=== PATIENT | male | born 1945 | race Caucasian/White ===

== ENCOUNTER 2017-12-31 11:38 | Day surgery (SDC) | payer OTHER ==
[2017-12-31] MEDS ORDERED: diphenhydrAMINE 25 MG CAP PO ONE (11:43)
[2017-12-31] MEDS ORDERED: DIAZEPAM 5 MG TAB PO ONE (11:43)
[2017-12-31] MEDS ORDERED: FAMOTIDINE 20 MG TAB PO ONE (11:43)
[2017-12-31] MEDS ORDERED: ASPIRIN EC 325 MG TAB PO ONE (11:43)
[2017-12-31] MEDS ORDERED: NS 1,000 ML IV ONE (11:43)
--- NOTE | 2017-12-31 12:07 | CPEKG ---
Heart Rate: 61 RR Interval: 984 P-R Interval: 260 QRSD Interval: 80 QT Interval: 424 QTC Interval: 427 P Garland: -27 QRS Garland: -1 T Wave Garland: 36 EKG Severity - ABNORMAL ECG - EKG Impression: SINUS RHYTHM EKG Impression: FIRST DEGREE AV BLOCK EKG Impression: PROBABLE INFERIOR INFARCT, AGE INDETERMINATE Electronically Signed By: Crow Sharma 31-Dec-2017 14:32:53
[2017-12-31 12:20] LABS: PLATELET COUNT 178 10^3/uL (150-400)
[2017-12-31 12:27] LABS: INR 0.99 (0.83-1.16); PROTIME(PATIENT) 13.3 SEC (12.0-15.0)
[2017-12-31] MEDS ORDERED: LIDOCAINE 1% 300 MG/30 ML SDV ONE (13:24)
[2017-12-31] MEDS ORDERED: IOPAMIDOL (ISOVUE-370) 150 ML BTL IV ONE (13:24)
--- NOTE | 2017-12-31 14:16 | PDPROPOC ---
Sedation Plan of Care Sedation Plan of Care: vital signs stable, mental status noted, patient educated of risks, benefits, alternatives, patient can tolerate sedation ASA Classification: ASA 2 Planned drugs: fentanyl, midazolam Mallampati Score: Class 2 Mallampati Reference Image: Patient passed 3-3-2 rule?: Yes
--- NOTE | 2017-12-31 14:16 | PDHPUP ---
History & Physical Update H&P update statement: This history and physical update is based on an assessment of the patient which was completed after admission or registration (within 24 hours), but prior to the surgery/procedure. H&P update: H&P reviewed & patient examined, no change in patient's condition since H&P completed
[2017-12-31] MEDS ORDERED: fentaNYL 100 MCG/2 ML INJ ONE (14:38)
[2017-12-31] MEDS ORDERED: MIDAZOLAM 2 MG/2 ML VIAL ONE (14:38)
[2017-12-31] MEDS ORDERED: VERAPAMIL 5 MG/2 ML VIAL ONE (14:48)
[2017-12-31] MEDS ORDERED: HEPARIN 10,000 UNIT/10 ML MDV (1,000 UNIT/ML) ONE (14:48)
[2017-12-31] MEDS ORDERED: ADENOSINE 90 MG/30 ML VIAL IV ONE ×2 (15:30)
[2017-12-31] MEDS ORDERED: NITROGLYCERIN 0.4 MG BTL SL PRN (15:51)
[2017-12-31] MEDS ORDERED: HYDROCODONE/APAP 5/325 TAB PO PRN (15:51)
[2017-12-31] MEDS ORDERED: ONDANSETRON 4 MG/2 ML VIAL IVP PRN (15:51)
[2017-12-31] MEDS ORDERED: ATROPINE SULFATE 1 MG/10 ML SYR IVP PRN (15:51)
--- NOTE | 2017-12-31 15:58 | PDDXCAT ---
Diagnostic Cath Note - . 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 LAD: Fluoroscopy reveals the presence of previously stented segments in the proximal to mid-LAD and in the proximal portion of the first diagonal branch. Angiography demonstrates that the stented segments are widely patent. The remainder of the LAD exhibits minimal luminal irregularities. The first diagonal branch has a 50-60% focal stenosis just distal to the previously placed stent. LCX: Fluoroscopy reveals the presence of a previously stented is segment in the mid-circumflex extending into the principal obtuse marginal branch. Angiography reveals that the stented segment is widely patent. The remainder of the circumflex and its obtuse marginal branches exhibit minimal irregularities. RCA: Flouroscopy reveals the presence of a previously stented segment in the distal RCA. Angiography reveals that the stented segment is widely patent. The proximal to mid-RCA demonstrates diffuse moderate disease. The posterior descending branch has a focal stenosis of at least 70% in its midportion. EDP: 19 mmHg LVEF: 45-50% Wall motion: Mild global hypokinesis. Complications: None. Estimated blood loss: <50ml Closure method: TR Band Assessment: 1) Mildly reduced LV systolic function. 2) CAD as described above. Intervention: Based on the patient's clinical history and diagnostic angiography, the decision was made to perform fractional flow reserve measurement of the RCA. The patient received 4000 units of intravenous heparin in addition to the 5000 units which had been given at the beginning of the procedure. A 6 [place] Hockey Stick-1 guide catheter was advanced to the proximal aorta. A pressure wire was advanced to the distal tip of the guiding catheter. Pressure tracings were equalized. The RCA was engaged and the pressure wire was advanced to the distal RCA. Intravenous adenosine was administered per protocol. Fractional flow reserve was normal at 0.95. Therefore, PCI was deferred. With respect to the focal stenosis in the posterior descending branch, the vessel is is less than 2 mm in diameter and not optimal for PCI. The patient is not experiencing symptoms of angina.
== END 2017-12-31 19:35 | disposition home or self-care (01) ==
LOC: FCATH 11:38
PROVIDERS: ATTEND Internal Medicine Interventional Cardiology
PROC: 4A1335C Monitoring of Arterial Flow, Coronary, Percutaneous Approach (ICD-10-PCS; principal; 2017-12-31)
PROC: 4A023N7 Measurement of Cardiac Sampling and Pressure, Left Heart, Percutaneous Approach (ICD-10-PCS; principal; 2017-12-31)
DX: R94.39 Abnormal result of other cardiovascular function study (principal); E78.5 Hyperlipidemia, unspecified; I25.10 Atherosclerotic heart disease of native coronary artery without angina pectoris; Z95.5 Presence of coronary angioplasty implant and graft
CPT/HCPCS: 93005; 93458; 93571; C1769; C1887; J0153; J1644; J2250; J3010; Q9967